=== PATIENT | male | born 1985 | race Two or more races ===

== ENCOUNTER 2025-02-22 09:47 | Inpatient (IN) | payer MEDICAID, OTHER ==
[2025-02-22] VITALS (7 sets, daily range): BP systolic 106–122; BP diastolic 61–70; PULSE 98–109; RESP 16–18; TEMP 98.5–99.6; O2SAT 98–100
[~2025-02-22] VITALS: Ht 185.4 cm; Wt 95.0 kg
--- NOTE | 2025-02-22 11:10 | ED.PDOC ---
GI ASSESSMENT HPI Comments 39 y.o male presents to the ED for a chief complaint for right sided abdominal pain that started 5 days ago. Patient reports pain is constant, non radiating, and has no alleviating factors. He denies any nausea, vomiting, diarrhea, fever, chills, dysuria, back pain. Patient has no medical history or known allergies. Chief Complaint: Abdominal Pain Time Seen by MD: 11:00 Reviewed Notes: Nurses Notes, Medications, Allergies Allergies: Coded Allergies: NO KNOWN ALLERGIES (Unverified , 02/22/25) Information Source: Patient Mode of Arrival: Ambulatory Timing: Days (5) Duration: Since onset Quality: Aching Vomitus: None Stool: Normal Severity: Moderate Recent: None Recent Hx of: None Pain Location: RUQ, RLQ Modifying Factors: Nothing Associated sign and symptoms: Abdominal Pain Past Medical History PAST MEDICAL HISTORY: Denies Surgical History: Denies all surgeries Family History Family History: Reviewed,noncontributory to illness, No family hx of Cancer, No family hx of DM, No family hx of Heart colt, No family hx of HTN, No family hx ofKidney colt, No family hx of Liver colt, No family hx of Lung colt, No family hx of Stroke Social History Smoker: Non-Smoker Alcohol: Denies ETOH Use Drugs: Denies Drug Use Lives In: Home Constitutional: denies: chills, diaphoresis, fatigue, fever, malaise, sweats, weakness, others EENTM: denies: blurred vision, double vision, ear bleeding, ear discharge, ear drainage, ear pain, ear ringing, eye pain, eye redness, hearing loss, mouth pain, mouth swelling, nasal discharge, nose bleeding, nose congestion, nose pain, photophobia, tearing, throat pain, throat swelling, voice changes, others Respiratory: denies: cough, hemoptysis, orthopnea, SOB at rest, shortness of breath, SOB with excertion, stridor, wheezing, others Cardiovascular: denies: chest pain, dizzy spells, diaphoresis, Dyspnea on exertion, edema, irregular heart beat, left arm pain, lightheadedness, palpitations, PND, syncope, others Gastrointestinal: reports: abdominal pain; denies: abdomen distended, blood streaked bowels, constipated, diarrhea, dysphagia, difficulty swallowing, hematemesis, melena, nausea, poor appetite, poor fluid intake, rectal bleeding, rectal pain, vomiting, others Genitourinary: denies: burning, dysuria, flank pain, frequency, hematuria, incontinence, penile discharge, penile sore, pain, testicle pain, testicle swelling, urgency, others Neurological: denies: dizziness, fainting, headache, left sided numbness, left sided weakness, numbness, paresthesia, pre-existing deficit, right sided numbn ess, right sided weakness, seizure, speech problems, tingling, tremors, weakness, others Musculoskeletal: denies: back pain, gout, joint pain, joint swelling, muscle pain, muscle stiffness, neck pain, others Integumetry: denies: bruises, change in color, change in hair/nails, dryness, laceration, lesions, lumps, rash, wounds, others Allergic/Immunocompromised: denies: Difficulty Healing, Frequent Infections, Hives, Itching, others Hematologic/Lymphatic: denies: anemia, blood clots, easy bleeding, easy bruising, swollen glands, others Endocrine: denies: excessive hunger, excessive sweating, excessive thirst, excessive urination, flushing, intolerance to cold, intolerance to heat, unexplained weight gain, unexplained weight loss, others Psychiatric: denies: anxiety, bipolar disorder, depression, hopeless, panic disorder, schizophrenia, sleepless, suicidal, others All Other Systems: Reviewed and Negative Physical Exam General Appearance: Moderate Distress HEENT: Normal ENT Inspection, Pharynx Normal, TMs Normal Neck: Full Range of Motion, Non-Tender, Normal, Normal Inspection Respiratory: Chest Non-Tender, Lungs Clear, No Accessory Muscle Use, No Respiratory Distress, Normal Breath Sounds Cardiovascular: No Edema, No JVD, No Murmur, No Gallop, Normal Peripheral Pulses, Regular Rate/Rhythm Breast Exam: Deferred Gastrointestinal: No Organomegaly, Non Tender, No Pulsatile Mass, Normal Bowel Sounds, Soft Genitalia: Deferred Pelvic: Deferred Rectal: Deferred Extremities: No calf tenderness, Normal capillary refill, Normal inspection, Normal range of motion, Non-tender, No pedal edema Musculoskeletal : Apperance: Normal Neurologic: Alert, business technology analyst II-XII nml as Tested, No Motor Deficits, Normal Affect, Normal Mood, No Sensory Deficits Cerebellar Function: Normal Reflexes: Normal Skin: Dry, Normal Color, Warm Peripheral Pulses: 3+ Radial (R), 3+ Radial (L) Lymphatic: No Adenopathy Was a procedure done? Was a procedure done?: No GI differential Dx Differential Diagnosis: Constipation, Diverticular disease, Esophagitis, Gastritis/PUD, Gastroenteritis, Viral X-Ray, Labs, Meds, VS Vital Signs Date Time Temp Pulse Resp B/P (MAP) Pulse Ox O2 Delivery O2 Flow Rate FiO2 02/22/25 13:29 97.9 127 16 120/75 (90) 96 97.9 02/22/25 11:44 98.7 66 16 110/71 (84) 97 98.7 02/22/25 09:50 97.8 124 18 120/82 97 97.8 Lab Test 02/22/25 11:20 Range/Units White Blood Count 13.4 H 4.4-10.8 10^3/uL Red Blood Count 5.30 4.5-5.90 10^6/uL Hemoglobin 16.1 13.5-17.5 g/dL Hematocrit 46.4 41.0-53.0 % Mean Corpuscular Volume 87.6 80.0-100.0 fL Mean Corpuscular Hemoglobin 30.3 28.0-32.0 pg Mean Corpuscular Hemoglobin Concent 34.6 32.0-36.0 g/dL Red Cell Distribution Width 13.8 11.8-14.3 % Platelet Count 291 140-450 10^3/uL Mean Platelet Volume 7.6 6.9-10.8 fL Neutrophils (%) (Auto) 78.8 37.0-80.0 % Lymphocytes (%) (Auto) 15.0 10.0-50.0 % Monocytes (%) (Auto) 5.7 0.0-12.0 % Eosinophils (%) (Auto) 0.2 0.0-7.0 % Basophils (%) (Auto) 0.3 0.0-2.0 % Neutrophils # (Auto) 10.5 H 1.6-8.6 10 ^3/uL Lymphocytes # (Auto) 2.0 0.4-5.4 10 ^3/uL Monocytes # (Auto) 0.8 0-1.3 10 ^3/uL Eosinophils # (Auto) 0 0-0.8 10 ^3/uL Basophils # (Auto) 0 0-0.2 10 ^3/uL Nucleated Red Blood Cells 0.1 % Sodium Level 135 L 136-145 mmol/L Potassium Level 4.3 3.5-5.1 mmol/L Chloride Level 99 98-107 mmol/L Carbon Dioxide Level 29 20-31 mmol/L Anion Gap 7 5-15 Blood Urea Nitrogen 8 L 9-23 mg/dL Creatinine 0.90 0.700-1.30 mg/dL Glomerular Filtration Rate Calc 113 >90 mL/min BUN/Creatinine Ratio 8.9 L 10.0-20.0 Serum Glucose 125 H 74-106 mg/dL Calcium Level 9.3 8.7-10.4 mg/dL Patient alert. Complaining of abdominal discomfort. Vitals stable. Answering questions. Saturation pristine on room air. Respiratory rate within normal limits. No leg swelling. No discoloration. He is anxious. Denies any past medical history. WBC elevated. Explained to the patient. Time of 1ST Reevaluation: 11:10 Reevaluation 1ST: Improved Patient Education/Counseling: Diagnosis, Treatment, Prognosis Family Education/Counseling: No Family Present SEPSIS Sepsis Screen Date sepsis recognized/suspect: Feb 22, 2025 Time Sepsis recognized/suspect: 950 Recent Procedure: No On Antibiotic Therapy: No Respiratory Rate >20: No Heart Rate >90: Yes Temp<36 C (96.8 F) or >38.3 C: No SBP <90 or MAP <65 mmHG: No New Acute Mental Status Change: No Is the patient on CPAP, BIPAP,: No Physician Orders Ct Ab Pel Wo Con-No Oral Or Iv (02/22/25 11:45) Vital Signs Date Time Temp Pulse Resp B/P (MAP) Pulse Ox O2 Delivery O2 Flow Rate FiO2 02/22/25 13:29 97.9 127 16 120/75 (90) 96 97.9 02/22/25 11:44 98.7 66 16 110/71 (84) 97 98.7 02/22/25 09:50 97.8 124 18 120/82 97 97.8 Laboratory Tests Test 02/22/25 11:20 White Blood Count 13.4 10^3/uL (4.4-10.8) H Departure 1 Departure Time of Disposition: 11:12 Impression: Primary Impression: Gastritis Qualified Codes: K29.00 - Acute gastritis without bleeding Disposition: ADMITTED INPATIENT Admit to: Med Surg Condition: Guarded Critical Care Note Critical Care Time?: No Stability Stability form required: No I personally scribed for CRISTELA LUCIA MD ([email or web address]) on 02/22/25 at 11:10. Electronically submitted by Natalia Gardner ([facility]). CRISTELA LUCIA MD Feb 22, 2025 11:10
[2025-02-22 11:35] LABS: Hematocrit 46.4 % (41.0-53.0); Hemoglobin 16.1 g/dL (13.5-17.5); Mean Corpuscular Hemoglobin 30.3 pg (28.0-32.0); Mean Corpuscular Volume 87.6 fL (80.0-100.0); Nucleated Red Blood Cells % 0.1 %
[2025-02-22 11:41] LABS: Chloride 99 mmol/L (98-107); Potassium 4.3 mmol/L (3.5-5.1)
[2025-02-22 11:42] LABS: Anion Gap 7 (5-15); Calcium 9.3 mg/dL (8.7-10.4); Carbon Dioxide 29 mmol/L (20-31); Sodium 135 mmol/L (136-145)
[2025-02-22 11:47] LABS: BUN/Creatinine Ratio 8.9 (10.0-20.0)
[2025-02-22 11:48] LABS: Blood Urea Nitrogen 8 mg/dL (9-23); Glucose 125 mg/dL (74-106)
--- NOTE | 2025-02-22 12:34 | DVH ---
EXAM: CT CT AB PEL WO CON-NO ORAL OR IV INDICATION: colitis TECHNIQUE: Volumetric multidetector CT images of the abdomen and pelvis were obtained without contras t. All CT scans at this facility use dose modulation, iterative reconstruction, and/or weight based d osing when appropriate to reduce radiation dose to as low as reasonably achievable. COMPARISON: None FINDINGS: [LOWER CHEST]: The partially visualized lung bases are clear without a pleural effusion. The cardiac size is normal without pericardial effusion. [LIVER]: Small subcentimeter hypoattenuating lesions in the right hepatic lobe, incompletely characte rized however likely benign. [GALLBLADDER AND BILIARY TREE]: No cholelithiasis. [SPLEEN]: Unremarkable. [PANCREAS]: Unremarkable. [ADRENAL GLANDS]: Unremarkable [KIDNEYS]: No hydronephrosis. 1 mm nonobstructive right renal caliceal stone. [BLADDER]: Unremarkable for the degree distention. [REPRODUCTIVE ORGANS]: Unremarkable. [BOWEL/MESENTERY]: Stomach is normal. Significant inflammatory stranding of the cecum with the appear ance of appendicitis. Appendix is dilated up to 1.6 cm. Significant surrounding inflammatory strand ing. Subsequent dilation of the transverse colon however normal caliber measuring 5.2 cm. [ASCITES]: Absent [LYMPHADENOPATHY]: No pathologically enlarged lymph nodes by CT size criteria [VASCULATURE]: No aneurysmal dilatation. [ABDOMINAL WALL]: Unremarkable. [MUSCULOSKELETAL]: No acute fracture or aggressive focal osseous lesion. IMPRESSION: 1. Acute appendicitis with significant surrounding inflammatory stranding. 2. Subsequent dilation of the transverse colon measuring up to 5.2 cm.
[2025-02-22] MEDS ORDERED: KETOROLAC TROMETH 30 MG/ML 1ML VIAL IV PRN (17:30)
[2025-02-22] MEDS ORDERED: ONDANSETRON HCL 4 MG/2 ML VIAL IV PRN (17:30)
--- NOTE | 2025-02-22 18:02 | ECG ---
[facility] Test Date: 2025-02-22 Test Time: 17:42:25 Pat Name: DELORES BOND Department: Room: [address] [place] [address] Gender: M Eligibility Counselor: : 1985 Requested By: CRISTELA LUCIA Order Number: [id number] Reading MD: Measurements Intervals [place] Rate: 103 P: 66 MN: 150 QRS: 93 QRSD: 107 T: 6 QT: 358 QTc: 469 Interpretive Statements Sinus tachycardia Borderline right axis deviation Please click the below link to view image of tracing.
[2025-02-22] MEDS: SODIUM CHLORIDE 0.9% 3,000 ML IV ONE (18:10)
--- NOTE | 2025-02-22 18:13 | DVHINCON2 ---
Date of service: Feb 22, 2025 History of Present Illness 39-year-old otherwise healthy male complaining of five day history of right lower quadrant abdominal pain associated with fevers. Patient denies any nause a, vomiting or diarrhea. Past Medical History None Past Surgical History None Family History Noncontributory Social History Denies alcohol, tobacco, IV drug use Allergies: Coded Allergies: NO KNOWN ALLERGIES (Unverified , 02/22/25) Current Medications Current Medications Medications (Trade) Dose Ordered Sig/Bobbi Route PRN Reason Start Time Stop Time Status Last Admin Piperacillin Sod/ Tazobactam Sod 100 ml @ 25 mls/hr Q6HR IV 02/23/25 00:00 Pantoprazole Sodium (Protonix) 40 mg DAILY IV 02/23/25 10:00 Ondansetron HCl (Zofran) 4 mg Q4HPRN PRN IV NAUSEA / VOMITING 02/22/25 17:30 Morphine Sulfate 2 mg Q4HPRN PRN IV SEVERE PAIN (7-10 PAIN SCALE) 02/22/25 17:45 Ketorolac Tromethamine (Toradol Injection) 15 mg Q6HPRN PRN IV MODERATE PAIN (4-6 PAIN SCALE) 02/22/25 17:30 02/27/25 17:29 Piperacillin Sod/ Tazobactam Sod 100 ml @ 25 mls/hr Q6HR IV 02/22/25 18:00 UNV Sodium Chloride 1,000 ml @ 150 mls/hr Q6H40M IV 02/22/25 18:00 UNV Vital Signs Vital Signs Date Time Temp Pulse Resp B/P (MAP) Pulse Ox O2 Delivery O2 Flow Rate FiO2 02/22/25 15:22 98.0 117 16 127/77 (94) 95 98.0 Physical Exam GEN: Age-appropriate male in no acute distress. Alert. HEENT: Normocephalic atraumatic. Moist mucous membranes. Anicteric sclerae. CV: Slightly tachycardic but regular rhythm Respiratory: Clear to auscultation bilaterally ABD: Slightly obese abdomen with localized right lower quadrant tenderness to palpation with localized guarding. CT of the abdomen and pelvis: Significant inflammatory stranding of the cecum with the appearance of the appendicitis with the appendix measuring up to 1.6 cm. Labs/Diagnostic Data Labs Test 02/22/25 17:36 02/22/25 11:20 Range/Units White Blood Count 13.4 H 4.4-10.8 10^3/uL Red Blood Count 5.30 4.5-5.90 10^6/uL Hemoglobin 16.1 13.5-17.5 g/dL Hematocrit 46.4 41.0-53.0 % Mean Corpuscular Volume 87.6 80.0-100.0 fL Mean Corpuscular Hemoglobin 30.3 28.0-32.0 pg Mean Corpuscular Hemoglobin Concent 34.6 32.0-36.0 g/dL Red Cell Distribution Width 13.8 11.8-14.3 % Platelet Count 291 140-450 10^3/uL Mean Platelet Volume 7.6 6.9-10.8 fL Neutrophils (%) (Auto) 78.8 37.0-80.0 % Lymphocytes (%) (Auto) 15.0 10.0-50.0 % Monocytes (%) (Auto) 5.7 0.0-12.0 % Eosinophils (%) (Auto) 0.2 0.0-7.0 % Basophils (%) (Auto) 0.3 0.0-2.0 % Neutrophils # (Auto) 10.5 H 1.6-8.6 10 ^3/uL Lymphocytes # (Auto) 2.0 0.4-5.4 10 ^3/uL Monocytes # (Auto) 0.8 0-1.3 10 ^3/uL Eosinophils # (Auto) 0 0-0.8 10 ^3/uL Basophils # (Auto) 0 0-0.2 10 ^3/uL Nucleated Red Blood Cells 0.1 % Sodium Level 135 L 136-145 mmol/L Potassium Level 4.3 3.5-5.1 mmol/L Chloride Level 99 98-107 mmol/L Carbon Dioxide Level 29 20-31 mmol/L Anion Gap 7 5-15 Blood Urea Nitrogen 8 L 9-23 mg/dL Creatinine 0.90 0.700-1.30 mg/dL Glomerular Filtration Rate Calc 113 >90 mL/min BUN/Creatinine Ratio 8.9 L 10.0-20.0 Serum Glucose 125 H 74-106 mg/dL Calcium Level 9.3 8.7-10.4 mg/dL Assessment 1. Acute appendicitis with possible perforation Plan/Recommendation 1. Continue with IV fluid resuscitation and antibiotics 2. We will scheduled for laparoscopic appendectomy possible open surgery Informed consent: The surgery and its risks including but not limited to infection, bleeding requiring possible blood transfusion with the risk of hepatitis or HIV infection, possible open surgery, possible leaving a small stump of the appendix versus resection of the cecum, possible perioperative DE or stroke were explained to the patient. All questions were answered to his satisfaction. He expressed verbal understanding and wished to proceed with the surgery if necessary. Plan discussed with: Patient CLEMENCIA COWAN MD Feb 22, 2025 18:13
[2025-02-22 18:20] LABS: INR 1.16 (0.9-1.15); Partial Thromboplastin Time 28.8 SEC (24.5-34.5); Prothrombin Time 12.1 sec (9.3-11.8)
[2025-02-22 18:25] LABS: Albumin 3.9 g/dL (3.2-4.8); Alkaline Phosphatase 109.0 U/L (46-116); Total Protein 6.6 g/dL (5.7-8.2)
[2025-02-22 18:26] LABS: Bilirubin, Total 0.9 mg/dL (0.2-1.0)
[2025-02-22 18:27] LABS: Alanine Aminotransferase 62.0 U/L (7-40)
[2025-02-22] MEDS: PIPERACILLIN-TAZO 4.5GM 100 ML IV ONE (18:31)
[2025-02-22] MEDS: SODIUM CHLORIDE 0.9% 1,000 ML IV SCH (18:31)
[2025-02-22] MEDS: PANTOPRAZOLE 40 MG/10 ML VIAL INJ IV ONE (18:32)
[2025-02-22 19:16] LABS: Bilirubin, Direct 0.4 mg/dL (<0.3)
--- NOTE | 2025-02-22 19:23 | DVHHPRES ---
History of Present Illness Resident Creating Document: JHAJSILVA Raphael RESIDENT History of Present Illness Patient is a 39-year-old male with no significant past medical history presented to the ER with a chief complaint of right lower quadrant abdominal pain for the last 4-5 days. Patient reported he had similar pain in the right lower quadrant about 2 weeks ago which resolved on its own after 4-5 days. This pain has been going on since Tuesday getting progressively worse and get worse on walking and moving around. Since today morning the pain got severe and patient came to the ER for further evaluation. He denied any nausea, vomiting, diarrhea, constipation. Since the morning today patient has not had any bowel movements and is not passing flatus. He complained of fever, chills, diaphoresis since earlier today. Medical history: None Surgical history: None Social history: Patient denies any smoking, alcohol, drug use Home medications: None Review of Systems Constitutional: Yes: Fever, Sweats, Weakness Eyes: No: Pain, Vision change, Conjunctivae inflammation, Eyelid inflammation, Other, Redness ENT: No: Ear pain, Ear discharge, Nose pain, Nose discharge, Nose congestion, Mouth pain, Mouth swelling, Throat pain, Throat swelling, Other Respiratory: No: Cough, Dry, Shortness of breath, SOB with excertion, Wheezing, Hemoptysis, Pleuritic Pain, Sputum, Wheezing, Other Gastrointestinal: Abdominal Pain (Right lower abdominal pain) Genitourinary: No Dysuria, No Frequency, No Incontinence, No Hematuria, No Retention, No Other Musculoskeletal: No: other, neck pain, shoulder pain, arm pain, back pain, hand pain, leg pain, foot pain Skin: No: Rash, Lesions, Jaundice, Bruising, Other Neurological: No: Weakness, Numbness, Incoordination, Change in speech, Confusion, Seizures, Other Allergies: Coded Allergies: NO KNOWN ALLERGIES (Unverified , 02/22/25) Medications Current Medications Medications Dose Ordered Sig/Bobbi Route Start Time Stop Time Status Last Admin Dose Admin Pantoprazole Sodium 40 mg DAILY IV 02/23/25 10:00 Ondansetron HCl 4 mg Q4HPRN PRN IV 02/22/25 17:30 Morphine Sulfate 2 mg Q4HPRN PRN IV 02/22/25 17:45 Ketorolac Tromethamine 15 mg Q6HPRN PRN IV 02/22/25 17:30 02/27/25 17:29 Piperacillin Sod/ Tazobactam Sod 100 ml @ 25 mls/hr Q6HR IV 02/23/25 00:00 Sodium Chloride 1,000 ml @ 150 mls/hr Q6H40M IV 02/22/25 18:00 02/22/25 18:31 150 MLS/HR Exam Vital Signs Vital Signs Date Time Temp Pulse Resp B/P (MAP) Pulse Ox O2 Delivery O2 Flow Rate FiO2 02/22/25 18:20 98.5 109 16 106/70 (82) 100 98.5 Exam Gen - no pallor, no icterus, no cyanosis, no edema . Skin - Patients skin is warm and dry. HEENT - normocephalic, atraumatic, moist mucous membranes. Neck - full ROM, no LAD, no JVD Pulmonary - B/L equal breath sounds, no crackles, no wheezing, no stridor. cardiovascular - regular S1,S2 heard, no added sounds, no murmurs heard. peripheral pulses normal radial 2+, pedal 2+. capillary refill normal <2 secs. GI - soft abdomen with tenderness with the patient in the right lower quadrant at the McBurney's point. no hepatosplenomegaly. Bowel sounds hypoactive Neurological - Patient is A/O X 3 . Bilateral upper extremity strength 5/5, bilateral lower extremity strength 5/5, no facial droop, normal speech, no tremor, no sensory deficits. Labs/Xrays Labs Test 02/22/25 17:36 02/22/25 11:20 Range/Units Prothrombin Time 12.1 H 9.3-11.8 sec Prothrombin Time INR 1.16 H 0.9-1.15 Activated Partial Thromboplast Time 28.8 24.5-34.5 SEC Lactic Acid Level 1.9 0.4-2.0 mmol/L Total Bilirubin 0.9 0.2-1.0 mg/dL Direct Bilirubin 0.4 H <0.3 mg/dL Aspartate Amino Transferase (AST) 60 H 13-40 U/L Alanine Aminotransferase (ALT) 62 H 7-40 U/L Alkaline Phosphatase 109 46-116 U/L Total Protein 6.6 5.7-8.2 g/dL Albumin 3.9 3.2-4.8 g/dL White Blood Count 13.4 H 4.4-10.8 10^3/uL Red Blood Count 5.30 4.5-5.90 10^6/uL Hemoglobin 16.1 13.5-17.5 g/dL Hematocrit 46.4 41.0-53.0 % Mean Corpuscular Volume 87.6 80.0-100.0 fL Mean Corpuscular Hemoglobin 30.3 28.0-32.0 pg Mean Corpuscular Hemoglobin Concent 34.6 32.0-36.0 g/dL Red Cell Distribution Width 13.8 11.8-14.3 % Platelet Count 291 140-450 10^3/uL Mean Platelet Volume 7.6 6.9-10.8 fL Neutrophils (%) (Auto) 78.8 37.0-80.0 % Lymphocytes (%) (Auto) 15.0 10.0-50.0 % Monocytes (%) (Auto) 5.7 0.0-12.0 % Eosinophils (%) (Auto) 0.2 0.0-7.0 % Basophils (%) (Auto) 0.3 0.0-2.0 % Neutrophils # (Auto) 10.5 H 1.6-8.6 10 ^3/uL Lymphocytes # (Auto) 2.0 0.4-5.4 10 ^3/uL Monocytes # (Auto) 0.8 0-1.3 10 ^3/uL Eosinophils # (Auto) 0 0-0.8 10 ^3/uL Basophils # (Auto) 0 0-0.2 10 ^3/uL Nucleated Red Blood Cells 0.1 % Sodium Level 135 L 136-145 mmol/L Potassium Level 4.3 3.5-5.1 mmol/L Chloride Level 99 98-107 mmol/L Carbon Dioxide Level 29 20-31 mmol/L Anion Gap 7 5-15 Blood Urea Nitrogen 8 L 9-23 mg/dL Creatinine 0.90 0.700-1.30 mg/dL Glomerular Filtration Rate Calc 113 >90 mL/min BUN/Creatinine Ratio 8.9 L 10.0-20.0 Serum Glucose 125 H 74-106 mg/dL Calcium Level 9.3 8.7-10.4 mg/dL SEPSIS Sepsis Screen Date sepsis recognized/suspect: Feb 22, 2025 Time Sepsis recognized/suspect: 950 Recent Procedure: No On Antibiotic Therapy: No Respiratory Rate >20: No Heart Rate >90: Yes Temp<36 C (96.8 F) or >38.3 C: No SBP <90 or MAP <65 mmHG: No New Acute Mental Status Change: No Is the patient on CPAP, BIPAP,: No Physician Orders Ct Ab Pel Wo Con-No Oral Or Iv (02/22/25 11:45) Admit (02/22/25 17:15) Oxygen By Nasal Cannula (02/22/25 17:15) Notify Md Of Changes From Base (02/22/25 17:15) Desk Officer For 24 Hours (02/22/25 17:15) Stat Ekg For Chest Pain (02/22/25 17:15) Hepatic Panel (02/22/25 17:15) Urinalysis (02/22/25 17:15) Type And Screen (02/22/25 17:15) Npo (Nothing By Mouth) Diet (02/22/25 Dinner) Sodium Chloride 0.9% (02/22/25 17:15) Blood Culture (02/22/25 17:15) Drug Screen (02/22/25 17:15) Pantoprazole (Protonix) (02/23/25 10:00) Ondansetron Hcl (Zofran) (02/22/25 17:30) Ketorolac Injection (Toradol Injection) (02/22/25 17:30) Morphine Sulfate Injection (02/22/25 17:45) * Surgical Consult (02/22/25 17:41) Sodium Chloride 0.9% (02/22/25 18:00) Piperacillin-Tazob 3.375gm (Zosyn 3.375g (02/23/25 00:00) Vital Signs Date Time Temp Pulse Resp B/P (MAP) Pulse Ox O2 Delivery O2 Flow Rate FiO2 02/22/25 18:20 98.5 109 16 106/70 (82) 100 98.5 02/22/25 17:45 103 02/22/25 15:22 98.0 117 16 127/77 (94) 95 98.0 02/22/25 13:29 97.9 127 16 120/75 (90) 96 97.9 02/22/25 11:44 98.7 66 16 110/71 (84) 97 98.7 Laboratory Tests Test 02/22/25 11:20 02/22/25 17:36 White Blood Count 13.4 10^3/uL (4.4-10.8) H Lactic Acid Level 1.9 mmol/L (0.4-2.0) Medications Medications Dose Ordered Sig/Bobbi Route Start Time Stop Time Status Last Admin Dose Admin Pantoprazole Sodium 40 mg ONCE ONCE IV 02/22/25 17:30 02/22/25 17:34 DC 02/22/25 18:32 40 MG Piperacillin Sod/ Tazobactam Sod 100 ml @ 100 mls/hr ONCE ONCE IV 02/22/25 17:15 02/22/25 18:14 DC 02/22/25 18:31 100 MLS/HR Sodium Chloride 1,000 ml @ 150 mls/hr Q6H40M IV 02/22/25 18:00 02/22/25 18:31 150 MLS/HR Sodium Chloride 3,000 ml @ 1,000 mls/hr Q3H ONCE IV 02/22/25 17:15 02/22/25 20:14 02/22/25 18:10 1,000 MLS/HR Assessment/Plan Assessment/Plan Acute intractable abdominal pain likely due to acute appendicitis Acute appendicitis Sepsis likely due to above Transaminitis - CT abdomen pelvis shows acute appendicitis with significant surrounding inflammatory stranding and subsequent dilation of transverse colon measuring 5.2 cm - aggressive IV fluids - antibiotics IV Zosyn - surgery consulted - patient NPO - possible open/laparoscopic appendectomy to be scheduled - RCRI 1 point; - ECG sinus rhythm without any acute ischemic changes, PUD prophylaxis: Protonix DVT prophylaxis: Enoxaparin Plan discussed with Dr. Ng Plan discussed with: Patient, Other (Nurse) My Orders Orders - SILVA CHAKRABORTY RESIDENT Procedure Category Date Status Time Admit ADMIT 02/22/25 Transmitted 17:15 Oxygen By Nasal RT 02/22/25 Transmitted Cannula 17:15 Notify Of Changes DOV 02/22/25 In Process From Base 17:15 Desk Officer For DOV 02/22/25 In Process 24 Hours 17:15 Stat Ekg For Chest DOV 02/22/25 In Process Pain 17:15 Hepatic Panel LAB 02/22/25 In Process 17:15 Urinalysis LAB 02/22/25 Logged 17:15 Type And Screen BBK 02/22/25 In Process 17:15 Npo (Nothing By DIET 02/22/25 Transmitted Mouth) Diet Dinner Sodium Chloride 0.9% PHA 02/22/25 In Process 17:15 Blood Culture TJ 02/22/25 In Process 17:15 Drug Screen LAB 02/22/25 Logged 17:15 Pantoprazole PHA 02/23/25 In Process (Protonix) 10:00 Ondansetron Hcl PHA 02/22/25 In Process (Zofran) 17:30 Ketorolac Injection PHA 02/22/25 In Process (Toradol Injection) 17:30 Morphine Sulfate PHA 02/22/25 In Process Injection 17:45 * Surgical Consult CONS 02/22/25 Transmitted 17:41 Date of Service: Feb 22, 2025 Billing Provider: SUYAPA NG MD Common Visit Codes: 34605-[id number] INP/OBS CARE (HIGH) SILVA CHAKRABORTY RESIDENT Feb 22, 2025 19:23 SUYAPA NG MD Feb 24, 2025 12:14
[2025-02-22 23:17] LABS: Urine Protein, UAD Negative (Negative)
[2025-02-22 23:43] LABS: Amphetamine Screen, Urine Pos (NEGATIVE); Barbiturate Scree,Urine Neg (NEGATIVE); Benzodiazephine Screen, Urine Neg (NEGATIVE); Cannabinoid Screen, Urine Neg (NEGATIVE); Cocaine Screen, Urine Neg (NEGATIVE); Opiate Scree,Urine Neg (NEGATIVE); Phencyclidine Screen, Urine Neg (NEGATIVE)
[2025-02-22] MEDS: PIPERACILLIN-TAZOB 3.375GM 100 ML IV SCH (23:54)
[2025-02-23] VITALS (10 sets, daily range): BP systolic 110–152; BP diastolic 56–83; PULSE 56–99; RESP 10–18; TEMP 97.8–99.5; O2SAT 95–100
[2025-02-23] MEDS ORDERED: PIPERACILLIN-TAZOB 3.375GM 100 ML IV SCH
[2025-02-23 06:13] LABS: Hematocrit 39.3 % (41.0-53.0); Hemoglobin 13.7 g/dL (13.5-17.5); Mean Corpuscular Hemoglobin 30.7 pg (28.0-32.0); Mean Corpuscular Volume 87.6 fL (80.0-100.0); Nucleated Red Blood Cells % 0.0 %
[2025-02-23 06:20] LABS: Anion Gap 10 (5-15); Carbon Dioxide 25 mmol/L (20-31); Chloride 103 mmol/L (98-107); Potassium 4.0 mmol/L (3.5-5.1); Sodium 138 mmol/L (136-145)
[2025-02-23 06:26] LABS: BUN/Creatinine Ratio 8.8 (10.0-20.0); Blood Urea Nitrogen 6 mg/dL (9-23); Calcium 8.4 mg/dL (8.7-10.4); Glucose 85 mg/dL (74-106)
[2025-02-23] MEDS: PANTOPRAZOLE 40 MG/10 ML VIAL INJ IV SCH (08:59)
[2025-02-23] MEDS: MORPHINE SULFATE 4 MG/ML SYR/VIAL IV PRN (09:19)
[2025-02-23] MEDS ORDERED: fentaNYL CITRATE 100 MCG/2 ML VL ONE ×2 (10:25→10:43)
[2025-02-23] MEDS ORDERED: MIDAZOLAM HCL 2MG/2ML 2ml VIAL (1mg/ml) ONE (10:25)
[2025-02-23] MEDS ORDERED: LORazepam 2MG/ML-1ML VIAL IV PRN (10:30)
[2025-02-23] MEDS ORDERED: HYDROmorphone HCL 2 MG/ML VL/or syr IV PRN ×2 (11:30→12:30)
[2025-02-23] MEDS ORDERED: ONDANSETRON HCL 4 MG/2 ML VIAL IV PRN (11:30)
[2025-02-23] MEDS ORDERED: SUGAMMADEX 200mg/2ml Vial (100MG/ML) IV ONE (11:45)
--- NOTE | 2025-02-23 11:48 | DVHOP2 ---
Operative Report - 2 Report Details Date: 02/23/25 Preop Diagnosis: 1. Acute appendicitis Postop Diagnosis: 1. Perforated gangrenous appendicitis Surgeon: Clemencia Freeman MD Time Study Technologist: None Anesthesiologist: Grayson Macias CRNA Anesthesia: General, Local Drains: 15 Portuguese Mamadou drain Consent: The surgery and its risks including but not limited to infection, bleeding requiring possible blood transfusion with the risk of hepatitis or HIV infection, possible open surgery, possible partial colon resection, possible perioperative CO or stroke were explained to the patient and his mother. All questions were answered to his satisfaction. He expressed verbal understanding and wished to proceed with the surgery. Complications: None Estimated Blood Loss: 50 mL Fluids: 1500 mL Name of Procedure Performed Laparoscopic appendectomy Procedure Details Procedure Details: After induction of general anesthesia, a Gorman catheter was placed by the OR nursing staff. Patient's abdomen was then prepped and draped in standard surgical fashion. A small supraumbilical incision was made and this is incision was taken through the abdominal wall down to the fascia which was opened using electrocautery. Peritoneum was then bluntly divided gaining access to the intra-abdominal cavity. Interrupted 0 Vicryl sutures were placed through the fascial incision and using an open technique, Hayder trocar was introduced and secured using the Vicryl sutures. Abdomen was insufflated to 15 mmHg and camera was inserted. Visual examination of the intestine under the fascial incision appeared normal without injury. Under direct visualization, a 5 mm bladeless trocar was placed in the left lower quadrant and a 2nd 5 mm bladeless trocar was placed in the suprapubic region both under direct visualization. Examination of the right lower quadrant revealed diffuse inflammation with omentum adhering to the cecum secondary to inflammatory adhesions. Omentum was then peeled off the cecum revealing a very dilated and gangrenous appearing appendix. The appendix appeared to be adherent to the peritoneal wall and this was revealing an abscess cavity consistent with a perforated appendicitis. The purulent fluid was quickly aspirated away. Small opening was made at the base of the appendix and an endo stapler was used to staple and divide across the base of the appendix without complication. The mesoappendix was then stapled and divided using an endovascular stapler. The appendix was then removed from the abdominal cavity using an endo pouch bag and sent off the surgical field. Abdomen was then re-insufflated. Staple line appeared intact without bleeding or leaks. There was small amount of serosanguineous fluid collected in the pelvis and this was aspirated. A 15 Portuguese Mamadou drain was placed into the pelvis and brought out through the suprapubic trocar site and secured to the skin using 3-0 nylon sutures. Restless trocars were then removed under direct visualization as the abdomen was deflated. Additional interrupted 0 Vicryl sutures were placed through the supraumbilical fascial incision and the sutures were tied down closing off the supraumbilical fascia. Surgical sites were irrigated injected with 20 mL of 0.5% Marcaine with epinephrine. Skin incisions were closed using steven. Sponge, needle, instrument count at the end of the case were reported to be correct by the nursing staff. The patient tolerated procedure well. At the time of dictation, with the patient is being awakened from general anesthesia. Specimen: Appendix Condition Stable Disposition Still a Patient CLEMENCIA FREEMAN MD Feb 23, 2025 11:48
[2025-02-23] MEDS: BUPIVACAINE W/ EPINEPH 0.5% MPF 30ML VIAL IJ ONE (12:16)
[2025-02-23] MEDS: HYDROmorphone HCL 2 MG/ML VL/or syr IV PRN (12:20)
[2025-02-23] MEDS: ACETAMINOPHEN IV 1000 MG/100ML (10MG/ML) IV ONE (13:07)
--- NOTE | 2025-02-23 17:33 | DVHPNRES ---
Progress Note Date Seen: Feb 23, 2025 Resident Creating Document: MARKIE,ELOINA RESIDENT Medical Necessity Reason Pt with a Central, PICC or Fol: No Subjective Review of Systems Patient is a 39-year-old male with no significant past medical history presented to the ER with a chief complaint of right lower quadrant abdominal pain for the last 4-5 days. Patient reported he had similar pain in the right lower quadrant about 2 weeks ago which resolved on its own after 4-5 days. This pain has been going on since Tuesday getting progressively worse and get worse on walking and moving around. Since today morning the pain got severe and patient came to the ER for further evaluation. He denied any nausea, vomiting, diarrhea, constipation. Since the morning today patient has not had any bowel movements and is not passing flatus. He complained of fever, chills, diaphoresis since earlier today. Medical history: None Surgical history: None Social history: Patient denies any smoking, alcohol, drug use Home medications: None The patient was seen and examined at bedside. Overnight events were reviewed. He reports having right lower quadrant pain. The patient is scheduled for laparoscopic appendectomy later today. Patient reports having no suicidal ideation. Patient was seen again postoperatively, the patient was drowsy and in pain. We will continue to follow up and monitor the patient. Objective vital signs Vital Sign Date Time Temp Pulse Resp B/P (MAP) Pulse Ox O2 Delivery O2 Flow Rate FiO2 02/23/25 16:50 97.9 86 17 119/71 (87) 95 97.9 02/23/25 12:05 Room Air 0 96 Total Intake and Output 02/22/25 02/22/25 02/23/25 15:00 23:00 07:00 Intake Total 100 ml Balance 100 ml medications Current Medications Medications Dose Ordered Sig/Bobbi Route Start Time Stop Time Status Last Admin Dose Admin Pantoprazole Sodium 40 mg DAILY IV 02/23/25 10:00 02/23/25 08:59 40 MG Ondansetron HCl 4 mg Q4HPRN PRN IV 02/22/25 17:30 Morphine Sulfate 2 mg Q4HPRN PRN IV 02/22/25 17:45 02/23/25 09:19 2 MG Piperacillin Sod/ Tazobactam Sod 100 ml @ 25 mls/hr Q6HR IV 02/23/25 00:00 02/23/25 08:58 25 MLS/HR Lorazepam 0.5 mg Q6HP PRN IV 02/23/25 10:30 Sodium Chloride 1,000 ml @ 75 mls/hr [id number] IV 02/23/25 12:00 Examination Pt is lying on bed General Appearance: Alert, Oriented X3, Cooperative, Mild distress HEENT: Atraumatic, Mucous membranes moist/pink Respiratory: Clear to auscultation, Normal air movement, No added sounds Cardiovascular: Regular rate, Normal S1, Normal S2, No murmurs Abdominal/ : Active bowel sounds, Soft, no distention, right lower quadrant tenderness (morning) Postoperatively, expectedly tender abdomen, laparoscopic bandages present over the abdomen, dry Extremities: No edema, Normal pulses, No tenderness/swelling Skin: No Significant rash, except past surgical scars Neuro: Normal speech, sensorimotor deficits none Psych/Mental Status: Mental status NL, Mood NL Nurse was there as leadite heater during examination laboratory and microbiology Laboratory Tests 02/23/25 05:37 Test 02/23/25 05:37 Range/Units Serum Glucose 85 74-106 mg/dL Labs and/or images reviewed: Labs reviewed by me, Image(s) reviewed by me Problem List/Assessment/Plan Problem List/Assessment/Plan Status post laparoscopic appendectomy Acute intractable abdominal pain likely due to acute appendicitis Acute appendicitis Sepsis due to above Transaminitis Patient is on clear liquid, postoperative pain management with [place] and nausea control by ondansetron - CT abdomen pelvis shows acute appendicitis with significant surrounding inflammatory stranding and subsequent dilation of transverse colon measuring 5.2 cm - aggressive IV fluids - antibiotics IV Zosyn - ECG sinus rhythm without any acute ischemic changes, Suicidal ideation excluded Depression Tele psych consult Patient is in 1 on 1 Methamphetamine use disorder Still denying use of methamphetamine despite positive drug screen Counseled for 16 minutes on methamphetamine use cessation PUD prophylaxis: Protonix DVT prophylaxis: Enoxaparin diet: Clear liquid started postoperatively Goals of care discussed with the patient for 20 minutes. Full code Plan discussed with Dr. Ng, patient and family Plan discussed with: Patient, Other (RN) My Orders My Orders Orders - ELOINA ADEN RESIDENT Procedure Category Date Status Time *Tele Psych Consult CONS 02/23/25 Transmitted 17:00 Date of Service: Feb 23, 2025 Billing Provider: SUYAPA NG MD Common Visit Codes: [id number] INP/OBS CARE(HIGH) Secondary Visit Codes: 22468-[id number] CHNG SMOKING >10MIN (Counseled for 16 minutes on methamphetamine use cessation), [id number] CARE PLAN 30 MINUTES Addendum Addendum Addendum I was physically present for the lobato portions of the service provided to patient by THE RESIDENT. I have reviewed the documentation, discussed the case with resident and agree with the resident's documentation except as noted. Also the patient's clinical case was discussed with the patient's nurse. This medical document was created using an electronic medical record system with computerized dictation system. Although this document has been carefully reviewed, there might still be some phonetic and typographical errors. These areas are purely typographical due to imperfections of the software programs, and do not reflect any compromise in the patient's medical care. Late signature. ELOINA ADEN Feb 23, 2025 17:33 SUYAPA NG MD Feb 24, 2025 12:13
[2025-02-23] MEDS: HYDROcodone-ACET 5/325MG TAB PO PRN (21:25)
[2025-02-24] VITALS (8 sets, daily range): BP systolic 114–127; BP diastolic 5–82; PULSE 81–96; RESP 17–20; TEMP 97.4–98.7; O2SAT 93–98
[2025-02-24] MEDS: SODIUM CHLORIDE 0.9% 1,000 ML IV SCH ×2 (01:19→15:46)
[2025-02-24 07:42] LABS: Hematocrit 38.2 % (41.0-53.0); Hemoglobin 13.3 g/dL (13.5-17.5); Mean Corpuscular Hemoglobin 30.5 pg (28.0-32.0); Mean Corpuscular Volume 87.5 fL (80.0-100.0); Nucleated Red Blood Cells % 0.0 %
[2025-02-24 07:53] LABS: Anion Gap 9 (5-15); Carbon Dioxide 26 mmol/L (20-31); Chloride 102 mmol/L (98-107); Potassium 4.3 mmol/L (3.5-5.1); Sodium 137 mmol/L (136-145)
[2025-02-24 07:54] LABS: Calcium 8.8 mg/dL (8.7-10.4)
[2025-02-24 07:59] LABS: BUN/Creatinine Ratio 9.4 (10.0-20.0); Glucose 84 mg/dL (74-106)
[2025-02-24 08:00] LABS: Blood Urea Nitrogen 6 mg/dL (9-23)
--- NOTE | 2025-02-24 10:48 | DVHINCON2 ---
Date of Service if different f: Feb 24, 2025 Consultation ([facility]) Progress: Better Labs Laboratory Tests Test 02/22/25 17:36 02/22/25 23:00 02/24/25 06:17 Prothrombin Time 12.1 sec (9.3-11.8) Prothromb Time International Ratio 1.16 (0.9-1.15) Activated Partial Thromboplast Time 28.8 SEC (24.5-34.5) Lactic Acid Level 1.9 mmol/L (0.4-2.0) Total Bilirubin 0.9 mg/dL (0.2-1.0) Direct Bilirubin 0.4 mg/dL (<0.3) Aspartate Amino Transf (AST/SGOT) 60 U/L (13-40) Alanine Aminotransferase (ALT/SGPT) 62 U/L (7-40) Alkaline Phosphatase 109 U/L (46-116) Total Protein 6.6 g/dL (5.7-8.2) Albumin 3.9 g/dL (3.2-4.8) Urine Color Yellow (Yellow) Urine Clarity Clear (Clear) Urine pH 6.0 (5.0-9.0) Urine Specific [place] 1.012 (1.001-1.035) Urine Protein Negative (Negative) Urine Ketones Negative (Negative) Urine Blood Negative /uL (Negative) Urine Nitrite Negative (Negative) Urine Bilirubin Negative (Negative) Urine Urobilinogen 4 mg/dL (Negative) Urine Leukocyte Esterase Negative /uL (Negative) Urine RBC None seen /hpf (0 - 3) Urine Microscopic WBC 2 /HPF (0-3) Urine Squamous Epithelial Cells Few /hpf (<5) Urine Bacteria None seen /hpf (None Seen) Urine Glucose Normal mg/dL (Normal) Urine Opiates Screen Neg (NEGATIVE) Urine Fentanyl Screen Neg (NEGATIVE) Urine Barbiturates Screen Neg (NEGATIVE) Urine Phencyclidine Screen Neg (NEGATIVE) Urine Amphetamines Screen Pos (NEGATIVE) Urine Benzodiazepines Screen Neg (NEGATIVE) Urine Cocaine Screen Neg (NEGATIVE) Urine Cannabinoids Screen Neg (NEGATIVE) White Blood Count 12.5 10^3/uL (4.4-10.8) Red Blood Count 4.37 10^6/uL (4.5-5.90) Hemoglobin 13.3 g/dL (13.5-17.5) Hematocrit 38.2 % (41.0-53.0) Mean Corpuscular Volume 87.5 fL (80.0-100.0) Mean Corpuscular Hemoglobin 30.5 pg (28.0-32.0) Mean Corpuscular Hemoglobin Concent 34.8 g/dL (32.0-36.0) Red Cell Distribution Width 13.2 % (11.8-14.3) Platelet Count 272 10^3/uL (140-450) Mean Platelet Volume 8.2 fL (6.9-10.8) Neutrophils (%) (Auto) 80.7 % (37.0-80.0) Lymphocytes (%) (Auto) 13.3 % (10.0-50.0) Monocytes (%) (Auto) 5.7 % (0.0-12.0) Eosinophils (%) (Auto) 0.1 % (0.0-7.0) Basophils (%) (Auto) 0.2 % (0.0-2.0) Neutrophils # (Auto) 10.1 10 ^3/uL (1.6-8.6) Lymphocytes # (Auto) 1.7 10 ^3/uL (0.4-5.4) Monocytes # (Auto) 0.7 10 ^3/uL (0-1.3) Eosinophils # (Auto) 0 10 ^3/uL (0-0.8) Basophils # (Auto) 0 10 ^3/uL (0-0.2) Nucleated Red Blood Cells 0.0 % Sodium Level 137 mmol/L (136-145) Potassium Level 4.3 mmol/L (3.5-5.1) Chloride Level 102 mmol/L (98-107) Carbon Dioxide Level 26 mmol/L (20-31) Anion Gap 9 (5-15) Blood Urea Nitrogen 6 mg/dL (9-23) Creatinine 0.64 mg/dL (0.700-1.30) Glomerular Filtration Rate Calc 125 mL/min (>90) BUN/Creatinine Ratio 9.4 (10.0-20.0) Serum Glucose 84 mg/dL (74-106) Calcium Level 8.8 mg/dL (8.7-10.4) Microbiology Date/Time Source Procedure Growth Status 02/22/25 17:36 Blood Blood Culture - Preliminary NO GROWTH AFTER 24 HOURS OF INCUBATION. Resulted Appetite: Good Side effects of medications: No Appearance: Stated age Psychomotor activity: WNL Behavioral: Cooperative Eye contact: Appropriate Speech: WNL Affect: Appropriate Mood: Euthymic Thought processes: Linear/Goal-directed Thought content: WNL Suicidal ideations: Absent Homicidal ideations: Absent Orientation: Person, Place, Time, Situation Memory intact: Recent Intellect: Average Abstractability: WNL Concentration: Adequate Attention: Adequate Judgement: WNL Insight: Good Vitals Vital Signs Date Time Temp Pulse Resp B/P (MAP) Pulse Ox O2 Delivery O2 Flow Rate FiO2 02/24/25 08:52 98.3 89 20 114/63 (80) 93 98.3 02/24/25 08:00 Room Air* 0 21 Current medications Current Medications Medications Dose Ordered Sig/Bobbi Route Start Time Stop Time Status Last Admin Dose Admin Pantoprazole Sodium 40 mg DAILY IV 02/23/25 10:00 02/24/25 08:52 40 MG Ondansetron HCl 4 mg Q4HPRN PRN IV 02/22/25 17:30 Morphine Sulfate 2 mg Q4HPRN PRN IV 02/22/25 17:45 02/23/25 09:19 2 MG Piperacillin Sod/ Tazobactam Sod 100 ml @ 25 mls/hr Q6HR IV 02/23/25 00:00 02/24/25 05:36 25 MLS/HR Lorazepam 0.5 mg Q6HP PRN IV 02/23/25 10:30 Sodium Chloride 1,000 ml @ 75 mls/hr [id number] IV 02/23/25 12:00 Acetaminophen/ Hydrocodone Bitart 1 tab Q6HPRN PRN PO 02/23/25 20:45 02/24/25 08:50 1 TAB Treatment plan discussed: With staff Medication adjusted: No Labs ordered: No Psychotherapy provided: No Type: Voluntary Diagnosis: 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 Plan : The pt does not appear to suffer from an acute psychiatric pathology and seems to be a low risk for risk of harm to self. There does not need to be a reason for the pt to follow-up with psychiatry outpatient. Pt has awareness to seek psychiatric treatment should he start to have mood changes or perceptual disturbances. Pt is logical, euthymic and in sustained remission from alcohol use disorder since 28 y/o which shows good personal growth and insight. Pt is psychiatrically cleared. History of Present Illness Reason for Consult : Pt confided that he had thought of suicide a month ago. HPI : The pt presented with RLQ pain which turned out to be gangrenous perforated appendicitis and was treated with laparoscopic surgery. Today is 1st post op day. An MD placed a sitter b/c of pt's admission of SI 1 month ago. Psychiatry is consulted to explore the pt's mention of suicidal thought 1 month ago. The RN reports that the pt has not made any current/ongoing suicidal thoughts known throughout this hospitalization and has not alluded being depressed. Pt verifies that he felt like not wanting to be alive about a month ago. Pt cites psychosocial stress at home. That situation has resolved. Pt denies current SI or depressive mood. Pt denies any symptoms of karely in his life. Denies current AVH. Denies hx of abuse or trauma. Pt denies any HI or history of it. Past Psychiatric History : Denies past psychiatric history IP or OP. Past Medical History : Appendectomy yesterday for reasons above. Denies other med problems or allergies. Social History : Lives with family, unemployed for 2 yrs, denies substance use. Has smoked cannabis in the past. Pt used to drink heavily from age 23 to 28 then stopped completely since then. Assessment/Diagnosis/Plan Reviewed: Consults, Care Plan, Labs, Medications LEIGHA ARRIAZA MD Feb 24, 2025 10:48
[2025-02-24] MEDS ORDERED: ROCURONIUM 10MG/ML 10ML VIAL IV ONE (14:36)
[2025-02-24] MEDS ORDERED: PROPOFOL 10 MG/ML 20 ML IV ONE (14:40)
--- NOTE | 2025-02-24 14:52 | DVHPN2 ---
Progress Note - Dictate Date Seen: Feb 24, 2025 Medical Necessity Reason Pt with a Central, PICC or Fol: No Subjective E: no major events o/n. feeling better than yesterday. namrata full liquid diet. vital signs Vital Sign Date Time Temp Pulse Resp B/P (MAP) Pulse Ox O2 Delivery O2 Flow Rate FiO2 02/24/25 13:00 97.4 83 19 126/72 (90) 95 97.4 02/24/25 08:00 Room Air* 0 21 Total Intake and Output 02/23/25 02/23/25 02/24/25 15:00 23:00 07:00 Intake Total 450 ml 1700 ml Output Total 45 ml 200 ml 225 ml Balance -45 ml 250 ml 1475 ml medications Current Medications Medications Dose Ordered Sig/Bobbi Route Start Time Stop Time Status Last Admin Dose Admin Pantoprazole Sodium 40 mg DAILY IV 02/23/25 10:00 02/24/25 08:52 40 MG Ondansetron HCl 4 mg Q4HPRN PRN IV 02/22/25 17:30 Morphine Sulfate 2 mg Q4HPRN PRN IV 02/22/25 17:45 02/23/25 09:19 2 MG Piperacillin Sod/ Tazobactam Sod 100 ml @ 25 mls/hr Q6HR IV 02/23/25 00:00 02/24/25 12:06 25 MLS/HR Lorazepam 0.5 mg Q6HP PRN IV 02/23/25 10:30 Sodium Chloride 1,000 ml @ 75 mls/hr [id number] IV 02/23/25 12:00 02/24/25 14:41 75 MLS/HR Acetaminophen/ Hydrocodone Bitart 1 tab Q6HPRN PRN PO 02/23/25 20:45 02/24/25 08:50 1 TAB objective GEN: NAD ABD: surgical dressings clean and dry. drain 25 mL light serosang laboratory and microbiology Laboratory Tests 02/24/25 06:17 Test 02/24/25 06:17 Range/Units Serum Glucose 84 74-106 mg/dL Assessment/Plan A: 1. s/p lap appendectomy POD #1 P: 1. cont iv abx 2. prob DC tomorrow. Plan discussed with: Patient CLEMENCIA COWAN MD Feb 24, 2025 14:52
--- NOTE | 2025-02-24 16:49 | DVHPNRES ---
Progress Note Date Seen: Feb 24, 2025 Resident Creating Document: BENNY DUVALL Medical Necessity Reason Pt with a Central, PICC or Fol: No Subjective Review of Systems Patient is a 39-year-old male with no significant past medical history presented to the ER with a chief complaint of right lower quadrant abdominal pain for the last 4-5 days. Patient reported he had similar pain in the right lower quadrant about 2 weeks ago which resolved on its own after 4-5 days. This pain has been going on since Tuesday getting progressively worse and get worse on walking and moving around. Since today morning the pain got severe and patient came to the ER for further evaluation. He denied any nausea, vomiting, diarrhea, constipation. Since the morning today patient has not had any bowel movements and is not passing flatus. He complained of fever, chills, diaphoresis since earlier today. The patient was seen and examined at bedside. Overnight events were reviewed. He reports having right lower quadrant pain. The patient is scheduled for laparoscopic appendectomy later today. Patient reports having no suicidal ideation. Patient was seen again postoperatively, the patient was drowsy and in pain. We will continue to follow up and monitor the patient. 02/24- Patient was seen and examined at bedside. Overnight events were reviewed. The patient reports improvement in his symptoms. The patient is feeling better than yesterday and tolerated a full liquid diet. Objective vital signs Vital Sign Date Time Temp Pulse Resp B/P (MAP) Pulse Ox O2 Delivery O2 Flow Rate FiO2 02/24/25 16:34 97.9 89 19 127/82 (97) 98 97.9 02/24/25 08:00 Room Air* 0 21 Total Intake and Output 02/23/25 02/23/25 02/24/25 15:00 23:00 07:00 Intake Total 450 ml 1700 ml Output Total 45 ml 200 ml 225 ml Balance -45 ml 250 ml 1475 ml medications Current Medications Medications Dose Ordered Sig/Bobbi Route Start Time Stop Time Status Last Admin Dose Admin Pantoprazole Sodium 40 mg DAILY IV 02/23/25 10:00 02/24/25 08:52 40 MG Ondansetron HCl 4 mg Q4HPRN PRN IV 02/22/25 17:30 Morphine Sulfate 2 mg Q4HPRN PRN IV 02/22/25 17:45 02/23/25 09:19 2 MG Piperacillin Sod/ Tazobactam Sod 100 ml @ 25 mls/hr Q6HR IV 02/23/25 00:00 02/24/25 12:06 25 MLS/HR Lorazepam 0.5 mg Q6HP PRN IV 02/23/25 10:30 Acetaminophen/ Hydrocodone Bitart 1 tab Q6HPRN PRN PO 02/23/25 20:45 02/24/25 08:50 1 TAB Sodium Chloride 1,000 ml @ 50 mls/hr Q20H IV 02/24/25 15:00 02/24/25 15:46 50 MLS/HR Examination General Appearance: Alert, Oriented X3, Cooperative, Mild distress HEENT: Atraumatic, Mucous membranes moist/pink Respiratory: Clear to auscultation, Normal air movement, No added sounds Cardiovascular: Regular rate, Normal S1, Normal S2, No murmurs Abdominal/ : Active bowel sounds, Soft, no distention, mild tenderness; laparoscopic bandages present over the abdomen, dry Extremities: No edema, Normal pulses, No tenderness/swelling Skin: No Significant rash, except past surgical scars Neuro: Normal speech, sensorimotor deficits none Psych/Mental Status: Mental status NL, Mood NL laboratory and microbiology Laboratory Tests 02/24/25 06:17 Test 02/24/25 06:17 Range/Units Serum Glucose 84 74-106 mg/dL Microbiology Date/Time Source Procedure Growth Status 02/22/25 17:36 Blood Blood Culture - Preliminary NO GROWTH AFTER 24 HOURS OF INCUBATION. Resulted Labs and/or images reviewed: Labs reviewed by me, Image(s) reviewed by me Problem List/Assessment/Plan Problem List/Assessment/Plan Status post laparoscopic appendectomy Acute intractable abdominal pain likely due to acute appendicitis Acute appendicitis Sepsis due to above Transaminitis Patient is on clear liquid, postoperative pain management with [place] and nausea control by ondansetron - CT abdomen pelvis shows acute appendicitis with significant surrounding inflammatory stranding and subsequent dilation of transverse colon measuring 5.2 cm - aggressive IV fluids - antibiotics IV Zosyn - ECG sinus rhythm without any acute ischemic changes, Suicidal ideation excluded Depression Tele psych consult One-to-one sitter Methamphetamine use disorder Still denying use of methamphetamine despite positive drug screen Counseled on methamphetamine use cessation PUD prophylaxis: Protonix DVT prophylaxis: Enoxaparin Diet: Clear liquid started postoperatively Goals of care: Full code Plan discussed with patient Plan discussed with Dr. Lei Plan discussed with: Patient, Other (RN) My Orders My Orders Orders - BENNY DUVALL Procedure Category Date Status Time Complete Blood Count LAB 02/25/25 Verified 04:00 Basic Metabolic Panel LAB 02/25/25 Verified 04:00 Date of Service: Feb 24, 2025 Billing Provider: SUYAPA LEI MD Common Visit Codes: [id number] INP/OBS CARE(HIGH) Addendum Addendum Addendum I was physically present for the lobato portions of the service provided to patient by THE RESIDENT. I have reviewed the documentation, discussed the case with resident and agree with the resident's documentation except as noted. Also the patient's clinical case was discussed with the patient's nurse. This medical document was created using an electronic medical record system with computerized dictation system. Although this document has been carefully reviewed, there might still be some phonetic and typographical errors. These areas are purely typographical due to imperfections of the software programs, and do not reflect any compromise in the patient's medical care. Late signature. BENNY DUVALL Feb 24, 2025 16:49 SUYAPA LEI MD Feb 25, 2025 11:52
[2025-02-25 01:00] VITALS: BP 128/87; PULSE 78; RESP 18; TEMP 98.1; O2SAT 95
[2025-02-25 05:00] VITALS: BP 139/88; PULSE 91; RESP 18; TEMP 98; O2SAT 96
[2025-02-25 07:01] LABS: Anion Gap 10 (5-15); Carbon Dioxide 26 mmol/L (20-31); Chloride 100 mmol/L (98-107); Potassium 4.1 mmol/L (3.5-5.1)
[2025-02-25 07:02] LABS: Calcium 9.1 mg/dL (8.7-10.4); Sodium 136 mmol/L (136-145)
[2025-02-25 07:03] LABS: Hematocrit 40.7 % (41.0-53.0); Hemoglobin 14.3 g/dL (13.5-17.5); Mean Corpuscular Hemoglobin 30.7 pg (28.0-32.0); Mean Corpuscular Volume 87.5 fL (80.0-100.0); Nucleated Red Blood Cells % 0.1 %
[2025-02-25 07:08] LABS: BUN/Creatinine Ratio 9.0 (10.0-20.0); Blood Urea Nitrogen 6 mg/dL (9-23); Glucose 82 mg/dL (74-106)
[2025-02-25 08:00] VITALS: PULSE 87; PULSE 92; RESP 18; O2SAT 96
[2025-02-25 09:00] VITALS: BP 119/73; PULSE 91; RESP 19; TEMP 98.8; O2SAT 94
--- NOTE | 2025-02-25 09:50 | DVHDSRES ---
Discharge Summary Date of Admission Resident Creating Document: ELOINA ADEN Feb 22, 2025 at 17:15 Date of Discharge: Feb 25, 2025 Admitting Diagnosis Acute appendicitis Labs/Diagnostic Data: Laboratory Results Test 02/25/25 05:46 02/22/25 23:00 02/22/25 17:36 White Blood Count 7.5 10^3/uL (4.4-10.8) Red Blood Count 4.65 10^6/uL (4.5-5.90) Hemoglobin 14.3 g/dL (13.5-17.5) Hematocrit 40.7 % (41.0-53.0) Mean Corpuscular Volume 87.5 fL (80.0-100.0) Mean Corpuscular Hemoglobin 30.7 pg (28.0-32.0) Mean Corpuscular Hemoglobin Concent 35.1 g/dL (32.0-36.0) Red Cell Distribution Width 13.4 % (11.8-14.3) Platelet Count 282 10^3/uL (140-450) Mean Platelet Volume 7.8 fL (6.9-10.8) Neutrophils (%) (Auto) 57.8 % (37.0-80.0) Lymphocytes (%) (Auto) 32.5 % (10.0-50.0) Monocytes (%) (Auto) 7.7 % (0.0-12.0) Eosinophils (%) (Auto) 1.4 % (0.0-7.0) Basophils (%) (Auto) 0.6 % (0.0-2.0) Neutrophils # (Auto) 4.4 10 ^3/uL (1.6-8.6) Lymphocytes # (Auto) 2.5 10 ^3/uL (0.4-5.4) Monocytes # (Auto) 0.6 10 ^3/uL (0-1.3) Eosinophils # (Auto) 0.1 10 ^3/uL (0-0.8) Basophils # (Auto) 0 10 ^3/uL (0-0.2) Nucleated Red Blood Cells 0.1 % Sodium Level 136 mmol/L (136-145) Potassium Level 4.1 mmol/L (3.5-5.1) Chloride Level 100 mmol/L (98-107) Carbon Dioxide Level 26 mmol/L (20-31) Anion Gap 10 (5-15) Blood Urea Nitrogen 6 mg/dL (9-23) Creatinine 0.67 mg/dL (0.700-1.30) Glomerular Filtration Rate Calc 123 mL/min (>90) BUN/Creatinine Ratio 9.0 (10.0-20.0) Serum Glucose 82 mg/dL (74-106) Calcium Level 9.1 mg/dL (8.7-10.4) Urine Color Yellow (Yellow) Urine Clarity Clear (Clear) Urine pH 6.0 (5.0-9.0) Urine Specific [place] 1.012 (1.001-1.035) Urine Protein Negative (Negative) Urine Ketones Negative (Negative) Urine Blood Negative /uL (Negative) Urine Nitrite Negative (Negative) Urine Bilirubin Negative (Negative) Urine Urobilinogen 4 mg/dL (Negative) Urine Leukocyte Esterase Negative /uL (Negative) Urine RBC None seen /hpf (0 - 3) Urine Microscopic WBC 2 /HPF (0-3) Urine Squamous Epithelial Cells Few /hpf (<5) Urine Bacteria None seen /hpf (None Seen) Urine Glucose Normal mg/dL (Normal) Urine Opiates Screen Neg (NEGATIVE) Urine Fentanyl Screen Neg (NEGATIVE) Urine Barbiturates Screen Neg (NEGATIVE) Urine Phencyclidine Screen Neg (NEGATIVE) Urine Amphetamines Screen Pos (NEGATIVE) Urine Benzodiazepines Screen Neg (NEGATIVE) Urine Cocaine Screen Neg (NEGATIVE) Urine Cannabinoids Screen Neg (NEGATIVE) Prothrombin Time 12.1 sec (9.3-11.8) Prothrombin Time INR 1.16 (0.9-1.15) Activated Partial Thromboplast Time 28.8 SEC (24.5-34.5) Lactic Acid Level 1.9 mmol/L (0.4-2.0) Total Bilirubin 0.9 mg/dL (0.2-1.0) Direct Bilirubin 0.4 mg/dL (<0.3) Aspartate Amino Transferase (AST) 60 U/L (13-40) Alanine Aminotransferase (ALT) 62 U/L (7-40) Alkaline Phosphatase 109 U/L (46-116) Total Protein 6.6 g/dL (5.7-8.2) Albumin 3.9 g/dL (3.2-4.8) Other Laboratory Tests 02/25/25 05:46 Brief Hx & Hospital Course: Patient is a 39-year-old male with no significant past medical history presented to the ER on 02/22/2025 with a chief complaint of right lower quadrant abdominal pain for the last 4-5 days. Patient reported he had similar pain in the right lower quadrant about 2 weeks ago which resolved on its own after 4-5 days. This pain has been going on since Tuesday getting progressively worse and get worse on walking and moving around. Since today morning the pain got severe and patient came to the ER for further evaluation. He denied any nausea, vomiting, diarrhea, constipation. Since the morning today patient has not had any bowel movements and is not passing flatus. He complained of fever, chills, diaphoresis since earlier on the day of admission. Medical history: None Surgical history: None Social history: Patient denies any smoking, alcohol, drug use. According to the psychiatrist, patient has a history of alcohol abuse previously, however the patient quit the age of 28. Home medications: None On CT abdomen pelvis showed, acute appendicitis, dilation of transverse colon up to 5.2 cm. Patient was managed with IV fluids, Zosyn. General surgery was consulted. The patient underwent a laparoscopic appendectomy on 02/23/2025. Postoperatively vision continued with IV antibiotics, fluids and encouraged to use incentive spirometry to prevent atelectasis. However patient had a concern for suicidal thoughts 1 month ago, depression. Psychiatry consult was done, according to the psychiatrist the patient does not have any suicidal intention or depression. The patient has good insight. He does not recommend outpatient follow up either. The patient is cleared from a psychiatry standpoint. Patient denied use of methamphetamine, however drug screen was positive. We counseled him on cessation. The patient's diet was advanced as tolerated. The patient was hemodynamically stable, was advised to follow up with PCP and surgery. Patient verbalized understanding of the treatment and discharge plan.Examination General Appearance: Alert, Oriented X3, Cooperative, Mild distress HEENT: Atraumatic, Mucous membranes moist/pink Respiratory: Clear to auscultation, Normal air movement, No added sounds Cardiovascular: Regular rate, Normal S1, Normal S2, No murmurs Abdominal/ : Active bowel sounds, Soft, no distention, tender abdomen, laparoscopic bandages present over the abdomen, dry Extremities: No edema, Normal pulses, No tenderness/swelling Skin: No Significant rash, except past surgical scars Neuro: Normal speech, sensorimotor deficits none Psych/Mental Status: Mental status NL, Mood NL Operations or Procedures PATIENT: DELORES BOND ACCT: [id number] UNIT: [id number] : 1985 LOC: ER ROOM / BED: / AGE / SEX: 39 / M ADM STATUS: REG ER SERVICE [id number] ORDERING PHYSICIAN: CRISTELA LUCIA MD PROCEDURE(s): ABPL - CT AB PEL WO CON-NO ORAL OR IV REASON: colitis ORDER NUMBER(s): [id number], ACCESSION NUMBER(s): [id number] EXAM: CT CT AB PEL WO CON-NO ORAL OR IV INDICATION: colitis TECHNIQUE: Volumetric multidetector CT images of the abdomen and pelvis were obtained without contrast. All CT scans at this facility use dose modulation, iterative reconstruction, and/or weight based dosing when appropriate to reduce radiation dose to as low as reasonably achievable. COMPARISON: None FINDINGS: [LOWER CHEST]: The partially visualized lung bases are clear without a pleural effusion. The cardiac size is normal without pericardial effusion. [LIVER]: Small subcentimeter hypoattenuating lesions in the right hepatic lobe, incompletely characterized however likely benign. [GALLBLADDER AND BILIARY TREE]: No cholelithiasis. [SPLEEN]: Unremarkable. [PANCREAS]: Unremarkable. [ADRENAL GLANDS]: Unremarkable [KIDNEYS]: No hydronephrosis. 1 mm nonobstructive right renal caliceal stone. [BLADDER]: Unremarkable for the degree distention. [REPRODUCTIVE ORGANS]: Unremarkable. [BOWEL/MESENTERY]: Stomach is normal. Significant inflammatory stranding of the cecum with the appearance of appendicitis. Appendix is dilated up to 1.6 cm. Significant surrounding inflammatory stranding. Subsequent dilation of the transverse colon however normal caliber measuring 5.2 cm. [ASCITES]: Absent [LYMPHADENOPATHY]: No pathologically enlarged lymph nodes by CT size criteria [VASCULATURE]: No aneurysmal dilatation. [ABDOMINAL WALL]: Unremarkable. [MUSCULOSKELETAL]: No acute fracture or aggressive focal osseous lesion. IMPRESSION: 1. Acute appendicitis with significant surrounding inflammatory stranding. 2. Subsequent dilation of the transverse colon measuring up to 5.2 cm. ATED BY: ROBYN SOL MD Laparoscopic appendectomy on 02/23/2025. Condition at Discharge: Stable Final Diagnosis/Problems List Status post laparoscopic appendectomy Acute intractable abdominal pain likely due to acute appendicitis Acute appendicitis Sepsis due to perforated gangrenous appendicitis Transaminitis Suicidal ideation excluded Depression Methamphetamine use disorder Discharge Disposition: Still a Patient Discharge Instruct/Medications Scheduled Amoxicillin & Pot Clavulanate (Augmentin Tablet), 875 MG PO BID Pantoprazole Sodium Sesquihydr (Protonix), 40 MG PO QAM Scheduled PRN Polyethylene Glycol (Miralax), 17 GM PO DAILYP PRN Discharge Statement: "Patient was advised to return to the ER or call 911 if any headaches, dizziness, shortness of breath, chest pain, abdominal pain, bleeding, fevers, or worsening of medical condition. Patient was counseled about treatment plan, medications, possible side effects, patientverbalized understanding. All questions were answered to the best of my ability. This discharge took greater then 30 minutes in planning, reviewing documentation, counseling the patient, and discussing with other team members." ASSESSMENT ASSESSMENT Assessment 1. Perforated gangrenous appendicitis Date of Service: Feb 25, 2025 Billing Provider: WENDI BAR MD Common Visit Codes: 69647-XRL/OBS DISCH DAY >30min ELOINA ADEN Feb 25, 2025 09:50 WENDI BAR MD Feb 26, 2025 19:10
--- NOTE | 2025-02-25 10:35 | DVHPN2 ---
Progress Note - Dictate Date Seen: Feb 25, 2025 Medical Necessity Reason Pt with a Central, PICC or Fol: No Subjective E: no major events o/n. feeling better than yesterday. namrata full liquid diet. vital signs Vital Sign Date Time Temp Pulse Resp B/P (MAP) Pulse Ox O2 Delivery O2 Flow Rate FiO2 02/25/25 09:00 98.8 91 19 119/73 (88) 94 98.8 02/25/25 08:00 Room Air* 0 21 Total Intake and Output 02/24/25 02/24/25 02/25/25 15:00 23:00 07:00 Intake Total 1255 ml 900 ml Output Total 1060 ml 1015 ml Balance 195 ml -115 ml medications Current Medications Medications Dose Ordered Sig/Bobbi Route Start Time Stop Time Status Last Admin Dose Admin Pantoprazole Sodium 40 mg DAILY IV 02/23/25 10:00 02/25/25 09:37 40 MG Ondansetron HCl 4 mg Q4HPRN PRN IV 02/22/25 17:30 Morphine Sulfate 2 mg Q4HPRN PRN IV 02/22/25 17:45 02/23/25 09:19 2 MG Piperacillin Sod/ Tazobactam Sod 100 ml @ 25 mls/hr Q6HR IV 02/23/25 00:00 02/25/25 05:12 25 MLS/HR Lorazepam 0.5 mg Q6HP PRN IV 02/23/25 10:30 Acetaminophen/ Hydrocodone Bitart 1 tab Q6HPRN PRN PO 02/23/25 20:45 02/25/25 05:11 1 TAB Sodium Chloride 1,000 ml @ 50 mls/hr Q20H IV 02/24/25 15:00 02/24/25 15:46 50 MLS/HR objective GEN: NAD ABD: surgical incisions clean and dry. drain scant output laboratory and microbiology Laboratory Tests 02/25/25 05:46 Test 02/25/25 05:46 Range/Units Serum Glucose 82 74-106 mg/dL Assessment/Plan A: 1. s/p lap appendectomy POD #2 doing well P: 1. stable from surgery POV for DC. 2. ok to wash surgical site 3. f/u in clinic next Mon. Dietary Evaluation Review Recommendations by RD: Dietary education by RD, Protein Supplementation Comments: 1) Initiate Ensure High Protein qd 2) Advance to soft diet when medically feasible 3) Refer to outpatient RD for weight management 4) Follow-up with health social work professor r/t methamphetamine abuse 5) Continue to monitor I&O, labs, and skin integrity Expected Outcomes/Goals: 1) appetite and labs to improve 2) diet to advance 3) gradual wt loss 4) f/u in 3-5 days Plan discussed with: Patient CLEMENCIA COWAN MD Feb 25, 2025 10:35
[2025-02-25 13:00] VITALS: BP 121/82; PULSE 85; RESP 17; TEMP 98.4; O2SAT 94
[2025-02-25] MEDS ORDERED: PANT40TA2 PO (15:24)
[2025-02-25] MEDS ORDERED: AUG875T PO (15:24)
[2025-02-25] MEDS ORDERED: POLY33505 PO (15:24)
== END 2025-02-25 15:30 | disposition home or self-care (01) | DRG 710 ==
LOC: ER 09:47 → OVERFLOW 17:15 → TELE-WESTW 23:25
PROVIDERS: ADMIT Internal Medicine Geriatric Medicine; ATTEND Internal Medicine Geriatric Medicine
PROC: 0DTJ4ZZ Resection of Appendix, Percutaneous Endoscopic Approach (ICD-10-PCS; principal; 2025-02-23 10:20)
DX: A41.9 Sepsis, unspecified organism (principal); K35.32 Acute appendicitis with perforation, localized peritonitis, and gangrene, without abscess; R71.0 Precipitous drop in hematocrit; R74.01 Elevation of levels of liver transaminase levels; F32.A Depression, unspecified; F15.90 Other stimulant use, unspecified, uncomplicated; K29.70 Gastritis, unspecified, without bleeding; Z56.0 Unemployment, unspecified
CPT/HCPCS: 36415; 74176; 80048; 80076; 80307; 81001; 83605; 85025; 85610; 85730; 86850; 86900; 86901; 87040; 93005; 96361; 96365; 96375; 97110; 97116; 97163; 97530; G0378; J0131; J1100; J1885; J2250; J2470; J2543; J2704